=== PATIENT | male | born 1940 | race Caucasian/White ===

== ENCOUNTER 2022-01-17 00:29 | Inpatient (IN) | payer OTHER, SELFPAY ==
[2022-01-17] VITALS (14 sets, daily range): BP systolic 123–210; BP diastolic 70–94; PULSE 49–60; RESP 15–20; TEMP 36.1–36.9; O2SAT 92–100
[2022-01-17] MEDS: Normal Saline Flush 10 ML SYR IVP ×2 (00:05→08:09)
--- NOTE | 2022-01-17 00:15 | DI.CT_ITS ---
Exam(s) CT ABDOMEN PELVIS WO EXAM: CT ABDOMEN PELVIS WO CLINICAL HISTORY: abdominal pain, ? obstruction. TECHNIQUE: Imaging Protocol: Axial computed tomography images with coronal and sagittal reformatted images were created and reviewed. COMPARISON: No exams were available for comparison FINDINGS: ABDOMEN: Lung Bases: Coronary artery calcifications and or vascular stents are present. Cardiomegaly is prese nt. There is a small hiatal hernia. Liver: Normal density. There is a 5 mm hypodense lesion in the left lobe of the liver. It is too sma ll for further characterization but likely reflects a small cyst. No suspicious hepatic lesions are seen on this noncontrast examination. Gallbladder and biliary tract: Cholelithiasis is present. There is no biliary ductal dilatation. Pancreas: Normal density, no abnormal calcifications or inflammatory process. Spleen: Normal. Kidneys: Normal size, contour and axis.No radiodense stones or obstructive uropathy. No masses seen. Adrenal glands: No mass is seen. Lymph nodes: Within normal limits. Abdominal Aorta: There is a 3 cm infrarenal abdominal aortic aneurysm. Atherosclerosis is present. PELVIS: Bladder:Symmetric distention, no gross wall thickening. Bowel: There is a moderate amount of stool throughout the colon. A normal appendix is present. Ther e is dilatation of the proximal small bowel the transition appears to lie in the left abdomen (series 3, image 289). The distal small bowel is of normal caliber. Peritoneal cavity: No ascites, collection or mesenteric inflammatory response. No free air. Reproductive organs: Within normal limits. Bones: Within normal limits. Soft Tissues: There is a small midline fat and fluid containing abdominal wall hernia several cm abov e the umbilicus. There is a moderate size fat containing right inguinal hernia. IMPRESSION: 1. Findings of a small-bowel obstruction with a transition seen in the mid abdomen on the left. 2. Cholelithiasis. Please correlate for any suggestive of acute cholecystitis in follow-up appropria tely. 3. 3 cm infrarenal abdominal aortic aneurysm. RADIATION DOSE DELIVERED: 718.05mGy.cm Total DLP DATA REPOSITORY: All CT scans at this facility are submitted to the National Radiology Data Registry (NRDR) Dose Index Registry (DIR) with the [employer] (ACR). RADIATION OPTIMIZATION: All CT scans at this facility use at least one of these dose optimization te chniques: automated exposure control; mA and/or kV adjustment per patient size (includes targeted exa ms where dose is matched to clinical indication); or iterative reconstruction.
[2022-01-17 00:32] LABS: Source Nasal/Nares
[2022-01-17 00:33] LABS: Abs Immature Grans 0.01 10^3/uL (0.0-0.06); Absolute Basophil Count 0.05 10^3/uL (0.0-0.2); Absolute Eosinophil Count 0.16 10^3/uL (0.0-0.7); Absolute Monocyte Count 0.79 10^3/uL (0.1-0.8); Absolute Neutrophil Count 4.58 10^3/uL (1.2-6.7); Basophils % 0.7; Eosinophils % 2.4; HCT 44.2 % (40.0-50.0); HGB 14.4 g/dL (13.5-17.5); Immature Grans % 0.1; Lymphocytes % 17.7; MCH 30.9 pg (27.0-33.0); MCHC 32.6 % (32.0-36.0); MCV 95 fL (80-95); MPV 9.4 fL (8.0-11.0); Monocytes % 11.6; Neutrophils % 67.5; Platelet Count 183 10^3/uL (130-400); RBC 4.66 10^6/uL (4.36-5.78); RDW 14.7 % (11.8-14.1); RDW-SD 52.1 fL; WBC 6.79 10^3/uL (4.4-10.8)
--- NOTE | 2022-01-17 00:40 | W.ED.GENAD ---
Discharge Plan Disposition Patient Disposition: [facility] INPATIENT Condition: Stable Discharge Details Clinical Impression: SBO (small bowel obstruction) ED Provider: Rajesh Carr Home Meds and New Rx's Prescriptions: No Action amiodarone 200 mg Tablet 200 mg PO DAILY multivitamin [Multi-Daily] Tablet 1 tab PO QAM nitroglycerin 0.3 mg Tablet, Sublingual 0.3 mg SUBLINGUAL Q5-15M PRN Rx Instructions: do not exceed 3 doses per episode cyanocobalamin (vitamin B-12) [Vitamin B-12] 1,000 mcg Tablet 1,000 mcg PO DAILY ferrous sulfate 325 mg (65 mg iron) Tablet 325 mg PO DAILY Rx Instructions: even numbered days only epinephrine [Epi E-Z Pen] 0.3 mg/0.3 mL Auto-Injector 0.3 mg IM PRN PRN rosuvastatin [Crestor] 20 mg Tablet 20 mg PO DAILY Eliquis 5 mg Tablet 5 mg PO BID Medical Decision Making 81 yo male with hx of CAD s/p 2 stents, prior mitral valve repair, afib on eliquis, who comes in with abdominal pain. He is in the area visiting from [facility]. He states he is concerned for a bowel obstruction as he had one 11 years ago despite never having any surgeries and at that time had a surgery with no bowel resections per patient. He had a recurrent obstruction a year ago treated conservatively with NG tube per patient. He started to have pain tonight around 6pm and is intermittent but feels it is gradually worsening so came here for an evaluation. He denies n/v and had a small bowel movement this morning. HE denies fevers, chest pain, dyspnea. His intial systolic BP wasover 200 but on my exam it is 160/82. He is in no distress and is caox4 speaking clearly. He localizes the pain to the mid to epigastric area and is tender and states he feels like his abdomen is swollen. no guarding or rebound. Given his history concern for possible sbo, will obtain labs including cbc, cmp, lipase and ct abdomen/pelvis to further evaluate. Will obtain noncontrast CT initially due to national IV contrast shortage. He has reproducible abdominal tenderness and no chest pain or dyspnea so do not feel acs workup indicated. labs unremarkable,small dose of fentanyl given at his request with good relief of pain. Pending vrad interpretation vrad report confirms sbo with transition point in the mid small bowel. They also note stone near gallbladder neck but has no leukocytosis or elevated lfts so doubt cholecystitis. Will consult with general surgery about admission spoke with Dr. Michael who accepts for admission and will proceed with NG tube placement which pt consents to Differential Diagnosis Differential Diagnosis: sbo, pancreatitis, cholecystitis Imaging Data Radiologic Study: Attestation: I personally reviewed and interpreted this imaging study as follows: Imaging: CT Scan Radiologist's impression: IMPRESSION: 1. Small bowel obstruction. Mid small bowel transition point. 2. Stone noted near the gallbladder neck. Cholecystitis questioned. Lab Data Lab results reviewed: Yes I reviewed the patient's lab results. HPI General Mode of arrival: ambulatory. Date/Time Provider Initiated Documentation: 01/17/22 00:40. Limitations to Documentation: no limitations. Information obtained by: patient. History of Present Illness 81 year old M presents to the emergency department with the chief complaint of abdominal pain, described as moderate, with intensity rated at 5. Quality is described as stabbing and aching, and is localized to the abdomen. Patient reports no radiation. Patient started experiencing this hour(s) (6) and it has been intermittent. No relieving factors improve symptom(s), No exacerbating factors reported . Patient notes no other symptoms.. Patient did receive the following treatments prior to arrival, none Related Data Home Medications Medication Instructions Recorded Confirmed amiodarone 200 mg tablet 200 mg PO DAILY 01/17/22 01/17/22 apixaban 5 mg tablet (Eliquis) 5 mg PO BID 01/17/22 01/17/22 cyanocobalamin (vitamin B-12) 1,000 mcg PO DAILY 01/17/22 01/17/22 1,000 mcg tablet (Vitamin B-12) epinephrine 0.3 mg/0.3 mL 0.3 mg IM PRN PRN 01/17/22 01/17/22 injection, auto-injector ferrous sulfate 325 mg (65 mg 325 mg PO DAILY 01/17/22 01/17/22 iron) tablet multivitamin 1 tab PO QAM 01/17/22 01/17/22 nitroglycerin 0.3 mg sublingual 0.3 mg sublingual Q5-15M PRN 01/17/22 01/17/22 tablet rosuvastatin 20 mg tablet (Crestor) 20 mg PO DAILY 01/17/22 01/17/22 Allergies Allergy/AdvReac Type Severity Reaction Status Date / Time nut - unspecified Allergy Severe Anaphylaxis Unverified 01/17/22 00:26 General Stated Complaint: Abd Prob YORDY: 3 Review of Systems All systems reviewed & are unremarkable except as noted in HPI and below Constitutional Constitutional: Denies chills, Denies fever(s) and Denies weakness Cardiovascular Cardiovascular: Denies chest pain and Denies dyspnea Respiratory Respiratory: Denies cough and Denies dyspnea Gastrointestinal Gastrointestinal: Denies nausea and Denies vomiting Genitourinary Genitourinary: Denies dysuria Musculoskeletal Musculoskeletal: Denies joint swelling Integumentary/Breasts Skin/Breast: Denies rash Neurologic Neurologic: Denies weakness 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 Exam Const General: no acute distress Orientation: alert HENMT Head: normal to inspection Ears: external ears normal General nose exam: external nose normal Mouth: moist mucous membranes Eyes General: appearance normal, both eyes and all related structures Neck Neck: normal visual inspection Resp Effort & Inspection: normal respiratory effort and able to speak in complete sentences Cardio Rate: regular rate GI Palpation: soft and tender Skin General skin exam: no rashes or lesions noted Neuro General: patient alert and patient oriented x3 Extrem General: normal to inspection Psych Mental Status: mental status grossly normal Course Vital Signs Vital signs: Vital Signs Temperature 36.7 C 01/17/22 00:16 Pulse 57 L 01/17/22 00:16 Respiratory Rate 20 01/17/22 00:16 Blood Pressure 210/94 H 01/17/22 00:16 Pulse Oximetry 98 01/17/22 00:16 Temperature 36.7 C 01/17/22 00:16 Temperature Source Skin 01/17/22 00:16 Pulse 57 L 01/17/22 00:16 Respiratory Rate 20 01/17/22 00:16 Respiratory Effort Non-Labored 01/17/22 00:33 Blood Pressure 210/94 H 01/17/22 00:16 Pulse Oximetry 98 01/17/22 00:16 Pain Level 6 01/17/22 00:16 Lab/Test Results Lab/Test Results: Laboratory Tests Range/Units 01/17/22 01/17/22 01/17/22 00:26 00:26 00:26 WBC (4.4-10.8) 10^3/uL 6.79 RBC (4.36-5.78) 10^6/uL 4.66 Hgb (13.5-17.5) g/dL 14.4 Hct (40.0-50.0) % 44.2 MCV (80-95) fL 95 MCH (27.0-33.0) pg 30.9 MCHC (32.0-36.0) % 32.6 RDW (11.8-14.1) % 14.7 H Plt Count (130-400) 10^3/uL 183 MPV (8.0-11.0) fL 9.4 Immature Gran % 0.1 Neutrophils % 67.5 Lymphocytes % 17.7 Monocytes % 11.6 Eosinophils % 2.4 Basophils % 0.7 Nucleated RBC % (0.0-0.3) % 0.0 Absolute Neutrophils (1.2-6.7) 10^3/uL 4.58 Absolute Lymphocytes (1.2-3.4) 10^3/uL 1.20 Absolute Monocytes (0.1-0.8) 10^3/uL 0.79 Absolute Eosinophils (0.0-0.7) 10^3/uL 0.16 Absolute Basophils (0.0-0.2) 10^3/uL 0.05 VBG Lactate (0.6-1.4) mmol/L 1.0 COVID-19 Source Nasal/Nares PAWSS Have you Been Recently Intoxicated or Drunk Within the Last 30 days?: No Have you Ever Experienced Previous Episodes of Alcohol Withdrawal?: No Have you ever Experienced Withdrawal Seizures?: No Have you ever Experienced Delirium Tremens(DT)s?: No Have you ever undergone Alcohol Rehabilitation Treatment (i.e, inpt ot outpatient treatment programs)?: No Have you ever Experienced Blackouts?: No Have you ever Combined Alcohol with other Downers within the last 90 days?: No Have you ever Combined Alcohol with any other Substance of Abuse during the last 90 days?: No Positive Blood Alcohol level on Presentation? [PCS.BAL]: No Evidence of Increased Autonomic Activity (i.e. HR>120, tremor, sweating, agitation, nausea)?: No Result: 0
[2022-01-17 00:47] LABS: INR 1.1 (0.9-1.1); PTT Activated 26.7 sec (21.0-27.5); Prothrombin Time 10.8 sec (9.3-11.0)
[2022-01-17 00:51] LABS: Bilirubin Negative (Negative); Blood Negative (Negative); Clarity Clear (Clear); Glucose Negative (Negative); Ketones Negative (Negative); Leukocyte Esterase Negative (Negative); Nitrite Negative (Negative); Specific Gravity 1.015 (1.005-1.025); Urobilinogen 0.2 EU/dL (Up TO 0.2)
[2022-01-17 00:52] LABS: ALT 25 U/L (16-63); AST 18 U/L (15-37); Albumin 3.9 g/dL (3.4-5.0); Alkaline Phosphatase 73 U/L (46-116); Anion Gap 5.6 mmol/L (3-11); BUN 17 mg/dL (7-18); Bilirubin, Total 0.4 mg/dL (0.2-1.0); CO2 30.4 mmol/L (21.0-32.0); CREATININE 1.3 mg/dL (0.70-1.30); Calcium 9.3 mg/dL (8.5-10.1); Chloride 103 mmol/L (98-107); Estimated GFR 52.72 (mL/min/1.73m2); Glucose 97 mg/dL (74-106); Lipase 115 U/L (73-393); Sodium 139 mmol/L (136-145); Total Protein 7.1 g/dL (6.4-8.2)
[2022-01-17 00:57] LABS: Bilirubin, Direct 0.1 mg/dL (0.0-0.2); Magnesium 2.3 mg/dL (1.8-2.4)
[2022-01-17 01:19] LABS: COVID-19 PCR Negative (Negative)
[2022-01-17] MEDS: fentaNYL 100 MCG/2 ML VIAL 50 MCG IVP (01:29)
[2022-01-17] MEDS: HYDROmorphone 2 MG/ML VIAL 0.5 MG IVP (02:52)
--- NOTE | 2022-01-17 02:54 | DI.VRAD_ITS ---
PROCEDURE INFORMATION: Exam: CT Abdomen And Pelvis Without Contrast Exam date and time: 01/17/2022 12:51 AM Age: 81 years old Clinical indication: Generalized; Prior surgery; Surgery date: 6+ months; Surgery type: Repair from prior bowel obstruction, heart stent/ valve; Patient HX: Abdominal pain, ? obstruction TECHNIQUE: Imaging protocol: Computed tomography of the abdomen and pelvis without contrast. Radiation optimization: All CT scans at this facility use at least one of these dose optimization techniques: automated exposure control; mA and/or kV adjustment per patient size (includes targeted exams where dose is matched to clinical indication); or iterative reconstruction. COMPARISON: No relevant prior studies available. FINDINGS: Lungs: Lung bases are clear. Diaphragm: Mild hiatal hernia. Liver: Unremarkable noncontrast liver. Gallbladder and bile ducts: Calcified stone noted near the gallbladder neck. Mild fat stranding noted around the gallbladder. No biliary ductal dilatation. Pancreas: Normal. No ductal dilation. Spleen: Normal. No splenomegaly. Adrenal glands: Normal. No mass. Kidneys and ureters: No hydronephrosis. Nondilated ureters. No stones. Stomach and bowel: Moderately distended stomach, filled with fluid and air. Unremarkable duodenum. Loops of small bowel are moderately dilated, to 3.7 cm. Fecalization of small bowel contents noted near a mid abdominal transition point. Distal small bowel is collapsed. Terminal ileum is unremarkable. Negative for inflammatory changes around the colon. Scattered diverticula are noted. Stool burden is mild. Appendix: No evidence of appendicitis. Intraperitoneal space: No free fluid. No free air. No abscess. Vasculature: Moderate vascular calcifications. No aneurysm. Lymph nodes: Unremarkable. No enlarged lymph nodes. Urinary bladder: Unremarkable as visualized. Reproductive: Unremarkable as visualized. Bones/joints: No compression fracture. Severe multilevel degenerative disc disease and facet arthropathy. Spinal canal stenosis and neural foraminal narrowing noted. Narrowing noted in both hips, left greater than right. Soft tissues: Small abdominal wall hernia noted inferior to the xiphoid process. Hernia neck 1.5 cm. Hernia sac 5.3 cm. Small amount of fluid and moderate fat noted within the hernia. Prominent fat noted in the right inguinal canal. IMPRESSION: 1. Small bowel obstruction. Mid small bowel transition point. 2. Stone noted near the gallbladder neck. Cholecystitis questioned. Dictated and Authenticated by: Rajesh Hercules MD. Ordering:FRANCI Mena MD
[2022-01-17] MEDS: Lidocaine 2% Viscous 15 ML CUP (03:10)
[2022-01-17] MEDS: Normal Saline 1,000 ML 100 ML IV ×3 (03:32→21:22)
[2022-01-17] MEDS: Ondansetron 4 MG/2 ML VIAL IVP (04:51)
[2022-01-17] MEDS: HYDROmorphone 2 MG/ML SYR 0.5 MG IVP (08:08)
--- NOTE | 2022-01-17 11:57 | PDOC.CMIN ---
- If Service Date Differs Date of service: 01/17/22 Time of Service: 11:57 Care Management Initial Assess REASON FOR HOSPITALIZATION:: small bowel obstruction PAST MEDICAL HISTORY/PAST SURGICAL HISTORY:: Medical History: Bowel obstruction, melonoma in situ, squamous cell skin cancer. Surgical History: hx of heart artery stent, hx of mitral valve repair, status post right knee replacement. PREVIOUS FUNCTIONAL STATUS/SOCIAL/FAMILY SUPPORTS:: Sekou lives in [place], [place] with his , José Luis. 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 They have three adult children, and six grandchildren. They lived in [place] in the 70's and 80's, and were in the area visiting friends and sightseeing. Sekou is independent with ADL's at baseline. CURRENT FUNCTIONAL STATUS:: Sekou was sitting up in bed visiting with his , José Luis, when CM met with him. He was pleasant and engaged in conversation. He stated that he has had a SBO before, once 11 years ago, and another about a year ago, so he is familiar with the course of treatment. He stated that they will plan to return to [place] once he is medically cleared, and will not require services upon discharge. He was later walking in the halls, as MD encourages ambulation. He stated that overall he feels good, and feels that he caught this SBO early. CM will continue to follow. ADVANCE DIRECTIVES:: Not on file at [facility]. Has patient been provided with info about the portal/API?: Yes Did the patient sign up for the portal?: No CODE STATUS:: Full Code INSURANCE COVERAGE / FINANCIAL ISSUES:: [facility] CURRENT HOME/COMMUNITY SERVICES/EQUIPMENT:: No current services or equipment. PRIMARY CARE PHYSICIAN:: Herber Saba- not local. POTENTIAL DISCHARGE NEEDS:: Follow up appointments. PATIENT/FAMILY EDUCATION NEEDS:: Review discharge instructions and limitations, discussion of self care needs including ask me three. ANTICIPATED BARRIERS TO DISCHARGE:: None TRANSPORTATION:: Via private vehicle by his . PLAN:: Anticipate Sekou will return home once medically cleared. His will drive him home via private vehicle. He will follow up with his PCP and discharge plan of care. CM will continue to follow.
--- NOTE | 2022-01-17 12:36 | W.PM.HP.N ---
Date of service: 01/17/22 Time of Service: 12:36 Assessment and Plan Assessment and plan (1) SBO (small bowel obstruction): Status: Acute Assessment and plan: Patient was admitted with small bowel obstruction for IV fluids, bowel rest, NG tube placement and pain control. NG tube 330 cc's out at 0830 NPO Continue IV fluids Pain control, with tylenol and hydromorphone Will order suppository to help stimulate BM Strongly encouraged ambulation and sitting up in the chair as tolerated. Patient appears stable, no signs of peritonitis. History of Present Illness Narrative: 81-year-old male with a history of coronary artery disease status post 2 stents, prior mitral valve repair, A. sharon on [facility] presented to the ER with complaints of abdominal pain. He states that he is visiting the area from [place]. While he was out to dinner he started experiencing abdominal pain which progressively worsened over the evening. He came into the ER for further evaluation for he has had previous experiences of small bowel obstructions which he felt were similar presentations. 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 Patient states last year he also had a small bowel obstruction which resolved within 5 days. He states his last bowel movement was yesterday morning however this was small in size. Patient states that his pain this morning is improved since receiving Dilaudid and NG tube placement. He denies any fevers, chills or night sweats. 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 Meds Allergies and Home Medications Allergies Allergy/AdvReac Type Severity Reaction Status Date / Time nut - unspecified Allergy Severe Anaphylaxis Unverified 01/17/22 00:26 Home Medications Medication Instructions Recorded Confirmed Type amiodarone 200 mg tablet 200 mg PO DAILY 01/17/22 01/17/22 History apixaban 5 mg tablet (Eliquis) 5 mg PO BID 01/17/22 01/17/22 History cyanocobalamin (vitamin B-12) 1,000 mcg PO DAILY 01/17/22 01/17/22 History 1,000 mcg tablet (Vitamin B-12) epinephrine 0.3 mg/0.3 mL 0.3 mg IM PRN PRN 01/17/22 01/17/22 History injection, auto-injector ferrous sulfate 325 mg (65 mg 325 mg PO DAILY 01/17/22 01/17/22 History iron) tablet multivitamin 1 tab PO QAM 01/17/22 01/17/22 History nitroglycerin 0.3 mg sublingual 0.3 mg sublingual Q5-15M PRN 01/17/22 01/17/22 History tablet rosuvastatin 20 mg tablet (Crestor) 20 mg PO DAILY 01/17/22 01/17/22 History Exam Const General: cooperative, healthy appearing and comfortable Orientation: alert and oriented x3 Resp Effort & Inspection: normal respiratory effort, no audible wheezes and no cough GI Inspection: normal to inspection Palpation: soft, no guarding and tender Results Labs Result diagrams: 01/17/22 00:26 01/17/22 00:26 Labs: Laboratory Results - last 24 hr 01/17/22 01/17/22 01/17/22 00:26 00:26 00:26 WBC RBC Hgb Hct MCV MCH MCHC RDW Plt Count MPV Immature Gran % Neutrophils % Lymphocytes % Monocytes % Eosinophils % Basophils % Nucleated RBC % Absolute Neutrophils Absolute Lymphocytes Absolute Monocytes Absolute Eosinophils Absolute Basophils PT INR APTT VBG Lactate Sodium 139 Potassium 4.0 Chloride 103 Carbon Dioxide 30.4 Anion Gap 5.6 BUN 17 Creatinine 1.3 Estimated GFR/1.73 m2 52.72 Glucose 97 Calcium 9.3 Magnesium 2.3 Total Bilirubin Cancelled 0.4 Conjugated Bilirubin 0.1 AST 18 ALT 25 Alkaline Phosphatase 73 Total Protein 7.1 Albumin 3.9 Lipase 115 Urine Color Urine Clarity Urine pH Ur Specific [place] Urine Protein Urine Ketones Urine Blood Urine Nitrite Urine Bilirubin Urine Urobilinogen Ur Leukocyte Esterase Urine Glucose COVID-19 Source Nasal/Nares SARS-CoV-2 (PCR) Negative 01/17/22 01/17/22 01/17/22 00:26 00:26 00:26 WBC 6.79 RBC 4.66 Hgb 14.4 Hct 44.2 MCV 95 MCH 30.9 MCHC 32.6 RDW 14.7 H Plt Count 183 MPV 9.4 Immature Gran % 0.1 Neutrophils % 67.5 Lymphocytes % 17.7 Monocytes % 11.6 Eosinophils % 2.4 Basophils % 0.7 Nucleated RBC % 0.0 Absolute Neutrophils 4.58 Absolute Lymphocytes 1.20 Absolute Monocytes 0.79 Absolute Eosinophils 0.16 Absolute Basophils 0.05 PT 10.8 INR 1.1 APTT 26.7 VBG Lactate 1.0 Sodium Potassium Chloride Carbon Dioxide Anion Gap BUN Creatinine Estimated GFR/1.73 m2 Glucose Calcium Magnesium Total Bilirubin Conjugated Bilirubin AST ALT Alkaline Phosphatase Total Protein Albumin Lipase Urine Color Urine Clarity Urine pH Ur Specific [place] Urine Protein Urine Ketones Urine Blood Urine Nitrite Urine Bilirubin Urine Urobilinogen Ur Leukocyte Esterase Urine Glucose COVID-19 Source SARS-CoV-2 (PCR) 01/17/22 00:46 WBC RBC Hgb Hct MCV MCH MCHC RDW Plt Count MPV Immature Gran % Neutrophils % Lymphocytes % Monocytes % Eosinophils % Basophils % Nucleated RBC % Absolute Neutrophils Absolute Lymphocytes Absolute Monocytes Absolute Eosinophils Absolute Basophils PT INR APTT VBG Lactate Sodium Potassium Chloride Carbon Dioxide Anion Gap BUN Creatinine Estimated GFR/1.73 m2 Glucose Calcium Magnesium Total Bilirubin Conjugated Bilirubin AST ALT Alkaline Phosphatase Total Protein Albumin Lipase Urine Color Yellow Urine Clarity Clear Urine pH 7.0 Ur Specific [place] 1.015 Urine Protein Negative Urine Ketones Negative Urine Blood Negative Urine Nitrite Negative Urine Bilirubin Negative Urine Urobilinogen 0.2 Ur Leukocyte Esterase Negative Urine Glucose Negative COVID-19 Source SARS-CoV-2 (PCR) Last Vital Signs Temp 36.3 C L 01/17/22 11:17 Pulse 52 L 01/17/22 11:17 Resp 16 01/17/22 11:17 BP 123/70 01/17/22 11:17 Pulse Ox 95 01/17/22 11:17 PAWSS Have you Been Recently Intoxicated or Drunk Within the Last 30 days?: No Have you Ever Experienced Previous Episodes of Alcohol Withdrawal?: No Have you ever Experienced Withdrawal Seizures?: No Have you ever Experienced Delirium Tremens(DT)s?: No Have you ever undergone Alcohol Rehabilitation Treatment (i.e, inpt ot outpatient treatment programs)?: No Have you ever Experienced Blackouts?: No Have you ever Combined Alcohol with other Downers within the last 90 days?: No Have you ever Combined Alcohol with any other Substance of Abuse during the last 90 days?: No Positive Blood Alcohol level on Presentation? [PCS.BAL]: No Evidence of Increased Autonomic Activity (i.e. HR>120, tremor, sweating, agitation, nausea)?: No Result: 0
[2022-01-17] MEDS: Bisacodyl 10 MG SUPP PR (13:46)
[2022-01-18] MEDS: ACETAMINOPHEN 1,000 MG/100 ML BTL 400 MG IVPB (01:08)
[2022-01-18 03:18] VITALS: BP 131/69; PULSE 57; RESP 17; TEMP 36.3; O2SAT 93
[2022-01-18 06:38] LABS: BUN 14 mg/dL (7-18); CREATININE 1.1 mg/dL (0.70-1.30); Calcium 8.2 mg/dL (8.5-10.1); Chloride 106 mmol/L (98-107); Glucose 85 mg/dL (74-106); Magnesium 2.1 mg/dL (1.8-2.4); Potassium 3.7 mmol/L (3.5-5.1); Sodium 141 mmol/L (136-145)
[2022-01-18 08:00] VITALS: BP 148/82; PULSE 54; RESP 14; TEMP 36.2; O2SAT 94
[2022-01-18] MEDS: Normal Saline 1,000 ML 100 ML IV ×2 (08:39→18:08)
--- NOTE | 2022-01-18 09:02 | PGE_ITS ---
Date of Service Date of service: 01/18/22 Time of Service: 09:02 Assessment and Plan Assessment and plan (1) SBO (small bowel obstruction): Status: Acute Assessment and plan: Patient appears stable, no signs of peritonitis. NG tube output ~330 already today, brown fluid Continue NPO Continue IV fluids Pain is well controlled, with tylenol and hydromorphone Strongly encouraged ambulation and sitting up in the chair as tolerated. Continue with bowel rest, NG tube decompression and pain control Pt does have BS this evening. He is not having any pain. When he was having pain- it was over the superior portion of his incision. Minimal from NGT. We will try clamping tube and clears. pt has been up walking we d/w the etiology of adhesions. He had previously laparotomy for what sounds like [place]'s bands. continue supportive care Subjective Subjective Interval history since last seen: Patient reports that his pain has improved. However he is not passing any flatus or bowel movements. Patient states that he was up ambulating earlier this morning and has been trying to ambulate the day. He denies any nausea or vomiting at this time. He is tolerating the NG tube well. Exam Const General: cooperative, healthy appearing and comfortable Orientation: alert and oriented x3 Resp Effort & Inspection: normal respiratory effort, no audible wheezes and no cough GI Inspection: distended Palpation: soft, no guarding and tender Auscultation: absent bowel sounds Objective Last Vital Signs Temp 36.3 C L 01/18/22 03:18 Pulse 57 L 01/18/22 03:18 Resp 17 01/18/22 03:18 BP 131/69 01/18/22 03:18 Pulse Ox 93 01/18/22 03:18 Laboratory Results - last 24 hr 01/18/22 05:48 Sodium 141 Potassium 3.7 Chloride 106 Carbon Dioxide 27.0 Anion Gap 8.0 BUN 14 Creatinine 1.1 Estimated GFR/1.73 m2 >= 60.00 Glucose 85 Calcium 8.2 L Magnesium 2.1 PAWSS Have you Been Recently Intoxicated or Drunk Within the Last 30 days?: No Have you Ever Experienced Previous Episodes of Alcohol Withdrawal?: No Have you ever Experienced Withdrawal Seizures?: No Have you ever Experienced Delirium Tremens(DT)s?: No Have you ever undergone Alcohol Rehabilitation Treatment (i.e, inpt ot outpatient treatment programs)?: No Have you ever Experienced Blackouts?: No Have you ever Combined Alcohol with other Downers within the last 90 days?: No Have you ever Combined Alcohol with any other Substance of Abuse during the last 90 days?: No Positive Blood Alcohol level on Presentation? [PCS.BAL]: No Evidence of Increased Autonomic Activity (i.e. HR>120, tremor, sweating, agitation, nausea)?: No Result: 0
[2022-01-18] MEDS: Amiodarone 200 MG TAB NG (09:31)
[2022-01-18 11:32] VITALS: BP 157/83; PULSE 55; RESP 18; TEMP 36.5; O2SAT 94
--- NOTE | 2022-01-18 12:27 | CMPROGNOTE_ITS ---
- If Service Date Differs Date of service: 01/18/22 Time of Service: 12:27 Care Management Progress Note S/O: Sekou was sitting up in bed when CM met with him. He stated that he is feeling ok today, and is not reporting pain. He stated that he slept well from about 8pm until 2am, and then he got up and walked around, as he is being encouraged to ambulate. He stated that he had a headache earlier today, but it resolved with IV tylenol. He is currently NPO. Sekou stated that he feels hopeful that he will be able to avoid surgery, but time will tell. CM will continue to follow. A: Sekou is an 81 year old male admitted to [facility] on 01/17/22 with a SBO. P: Anticipate Sekou will return home once medically cleared. His will drive him home via private vehicle. He will follow up with his PCP and discharge plan of care. CM will continue to follow.
--- NOTE | 2022-01-18 14:09 | CHAPLAIN ---
Sekou was resting in bed when I visited. He was very pleasant and easily engaged in a conversation. His was with him. Sekou said that being in pain had really drained him, but he has been feeling better for about 24 hours now. He is from outside of [place] and was visiting the area when he came to the ED. 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 His worked at the [employer]. He comes back to this area to visit now.
[2022-01-18 15:13] VITALS: BP 150/85; PULSE 56; RESP 18; TEMP 37; O2SAT 95
[2022-01-18 19:50] VITALS: BP 150/73; PULSE 58; RESP 16; TEMP 37.2; O2SAT 95
[2022-01-18 23:38] VITALS: BP 154/81; PULSE 54; RESP 16; TEMP 37.4; O2SAT 95
[2022-01-19] VITALS (9 sets, daily range): BP systolic 113–180; BP diastolic 64–91; PULSE 50–61; RESP 14–17; TEMP 35.9–37; O2SAT 93–95
[2022-01-19] MEDS: Normal Saline 1,000 ML 100 ML IV (04:49)
[2022-01-19] MEDS: Amiodarone 200 MG TAB PO (09:51)
--- NOTE | 2022-01-19 12:16 | CMPROGNOTE_ITS ---
- If Service Date Differs Date of service: 01/19/22 Time of Service: 12:16 Care Management Progress Note S/O: Sekou was lying in bed when CM met with him. He reported that per MD, he would likely have his NG tube removed today, as it has been clamped overnight, and his diet was advanced to clear liquids, which he is tolerating well. He is anticipating that he will return home this weekend, if he continues to improve. He does not anticipate requiring any services upon discharge. CM will continue to follow. A: Sekou is an 81 year old male admitted to [facility] on 01/17/22 with a SBO. P: Anticipate Sekou will return home once medically cleared. His will drive him home via private vehicle. He will follow up with his PCP and discharge plan of care. CM will continue to follow.
[2022-01-19] MEDS: POTASSIUM CHLORIDE/D5-0.45NACL 1,000 ML 100 MEQ IV ×2 (13:19→23:07)
--- NOTE | 2022-01-19 14:09 | NUR.NOTE ---
Nursing Note: Per MD order. The NG was restarted on low intermittent. Patient is NPO again. IVF changed to D5 1/2 NS 20 K at 100. All this explained to the patient and his spouse who verbalize agreement with the POC
--- NOTE | 2022-01-19 16:51 | W.PM.PROGNOT ---
Date of Service Date of service: 01/19/22 Time of Service: 11:54 Assessment and Plan Assessment and plan (1) SBO (small bowel obstruction): Status: Acute Assessment and plan: -Slowly improving, had aspiration event todah -Continue NG tube and bowel rest -Will reassess in AM -KUB for the AM Subjective Subjective Patient reports: no new complaints, feels better, flatus and afebrile; denies bowel movement, nausea or vomiting Exam Const General: cooperative, healthy appearing, comfortable and no acute distress Nutritional Appearance: average body habitus Resp Effort & Inspection: normal respiratory effort, no audible wheezes and no cough GI Inspection: normal to inspection and non-distended Palpation: soft, not firm, no guarding and nontender Neuro General: patient alert, patient awake and patient oriented x3 Objective Last Vital Signs Temp 98.2 F 01/19/22 15:24 Pulse 50 L 01/19/22 15:24 Resp 17 01/19/22 15:24 BP 143/73 H 01/19/22 15:24 Pulse Ox 94 01/19/22 15:24 PAWSS Have you Been Recently Intoxicated or Drunk Within the Last 30 days?: No Have you Ever Experienced Previous Episodes of Alcohol Withdrawal?: No Have you ever Experienced Withdrawal Seizures?: No Have you ever Experienced Delirium Tremens(DT)s?: No Have you ever undergone Alcohol Rehabilitation Treatment (i.e, inpt ot outpatient treatment programs)?: No Have you ever Experienced Blackouts?: No Have you ever Combined Alcohol with other Downers within the last 90 days?: No Have you ever Combined Alcohol with any other Substance of Abuse during the last 90 days?: No Positive Blood Alcohol level on Presentation? [PCS.BAL]: No Evidence of Increased Autonomic Activity (i.e. HR>120, tremor, sweating, agitation, nausea)?: No Result: 0
[2022-01-19] MEDS: diphenhydrAMINE 50 MG/ML VIAL 12.5 MG IVP (20:22)
[2022-01-19] MEDS: LORazepam 2 MG/ML VIAL 0.5 MG IVP (23:08)
[2022-01-20 03:20] VITALS: BP 133/71; PULSE 55; RESP 16; TEMP 37; O2SAT 93
[2022-01-20 06:19] LABS: Abs Immature Grans 0.01 10^3/uL (0.0-0.06); Absolute Basophil Count 0.04 10^3/uL (0.0-0.2); Absolute Eosinophil Count 0.24 10^3/uL (0.0-0.7); Absolute Lymphocyte Count 0.82 10^3/uL (1.2-3.4); Absolute Monocyte Count 0.63 10^3/uL (0.1-0.8); Absolute Neutrophil Count 3.28 10^3/uL (1.2-6.7); Basophils % 0.8; Eosinophils % 4.8; HCT 40.2 % (40.0-50.0); Immature Grans % 0.2; Lymphocytes % 16.3; MCH 30.5 pg (27.0-33.0); MCHC 32.3 % (32.0-36.0); MCV 94 fL (80-95); MPV 9.4 fL (8.0-11.0); Monocytes % 12.5; Neutrophils % 65.4; Platelet Count 157 10^3/uL (130-400); RBC 4.26 10^6/uL (4.36-5.78); RDW 14.7 % (11.8-14.1); RDW-SD 51.5 fL; WBC 5.02 10^3/uL (4.4-10.8)
[2022-01-20 06:55] LABS: ALT 21 U/L (16-63); AST 17 U/L (15-37); Albumin 2.8 g/dL (3.4-5.0); Alkaline Phosphatase 60 U/L (46-116); Anion Gap 5.2 mmol/L (3-11); BUN 8 mg/dL (7-18); Bilirubin, Total 0.6 mg/dL (0.2-1.0); CO2 29.8 mmol/L (21.0-32.0); Calcium 8.3 mg/dL (8.5-10.1); Chloride 107 mmol/L (98-107); Glucose 108 mg/dL (74-106); Magnesium 1.9 mg/dL (1.8-2.4); PHOSPHORUS 2.8 mg/dL (2.6-4.7); Potassium 3.7 mmol/L (3.5-5.1); Sodium 142 mmol/L (136-145); TSH (W/Ref FT4) 4.16 uIU/mL (0.36-3.74); Total Protein 5.7 g/dL (6.4-8.2)
[2022-01-20] MEDS: Amiodarone 200 MG TAB PO (07:45)
[2022-01-20 07:53] VITALS: BP 148/72; PULSE 50; RESP 18; TEMP 35.2; O2SAT 92
--- NOTE | 2022-01-20 08:00 | DI.RAD_ITS ---
Exam(s) XR ABDOMEN FLAT UPRIGHT EXAM: XR ABDOMEN FLAT UPRIGHT CLINICAL HISTORY: SBO. TECHNIQUE: 2D digital imaging was performed. COMPARISON: CT CT ABDOMEN PELVIS WO from 01/17/2022 FINDINGS: 3 views There is an NG tube in the stomach and the stomach is decompressed. Small right-sided pleural effusi on evident. NG tube is in the distal stomach and the stomach is decompressed. Sternotomy wires and prosthetic mitral valve noted. There is still some mildly dilated small bowel loops in this patient has a small bowel obstruction as seen on CT scan of the abdomen performed 01/17/2022. IMPRESSION: NG tube in the stomach and the stomach is decompressed. Some persistent air-filled mildly dilated sm all bowel loops are noted. There is no free air. Small right pleural effusion incidentally noted. Sternotomy wires and prosthetic mitral valve evident DATA REPOSITORY: RADIATION DOSE DELIVERED:
--- NOTE | 2022-01-20 09:39 | W.PM.PROGNOT ---
Date of Service Date of service: 01/20/22 Time of Service: 09:39 Assessment and Plan Assessment and plan (1) SBO (small bowel obstruction): Status: Acute Assessment and plan: -Slowly improving, minimal NG tube output -DC NG tube and start clear liquid diet -KUB improved -Encourage ambulation Subjective Subjective Patient reports: no new complaints, feels better and flatus Interval history since last seen: Was up walking for 20 minutes this morning Exam Const General: cooperative, healthy appearing, comfortable and no acute distress Nutritional Appearance: average body habitus Resp Effort & Inspection: normal respiratory effort, no audible wheezes and no cough GI Inspection: normal to inspection and non-distended Palpation: soft, not firm, no guarding and nontender Neuro General: patient alert, patient awake and patient oriented x3 Objective Last Vital Signs Temp 95.4 F L 01/20/22 07:53 Pulse 50 L 01/20/22 07:53 Resp 18 01/20/22 07:53 BP 148/72 H 01/20/22 07:53 Pulse Ox 92 01/20/22 07:53 Laboratory Results - last 24 hr 01/20/22 01/20/22 05:35 05:35 WBC 5.02 RBC 4.26 L Hgb 13.0 L Hct 40.2 MCV 94 MCH 30.5 MCHC 32.3 RDW 14.7 H Plt Count 157 MPV 9.4 Immature Gran % 0.2 Neutrophils % 65.4 Lymphocytes % 16.3 Monocytes % 12.5 Eosinophils % 4.8 Basophils % 0.8 Nucleated RBC % 0.0 Absolute Neutrophils 3.28 Absolute Lymphocytes 0.82 L Absolute Monocytes 0.63 Absolute Eosinophils 0.24 Absolute Basophils 0.04 Sodium 142 Potassium 3.7 Chloride 107 Carbon Dioxide 29.8 Anion Gap 5.2 BUN 8 Creatinine 1.0 Estimated GFR/1.73 m2 >= 60.00 Glucose 108 H Calcium 8.3 L Phosphorus 2.8 Magnesium 1.9 Total Bilirubin 0.6 AST 17 ALT 21 Alkaline Phosphatase 60 Total Protein 5.7 L Albumin 2.8 L TSH 4.16 H Free T4 1.20 PAWSS Have you Been Recently Intoxicated or Drunk Within the Last 30 days?: No Have you Ever Experienced Previous Episodes of Alcohol Withdrawal?: No Have you ever Experienced Withdrawal Seizures?: No Have you ever Experienced Delirium Tremens(DT)s?: No Have you ever undergone Alcohol Rehabilitation Treatment (i.e, inpt ot outpatient treatment programs)?: No Have you ever Experienced Blackouts?: No Have you ever Combined Alcohol with other Downers within the last 90 days?: No Have you ever Combined Alcohol with any other Substance of Abuse during the last 90 days?: No Positive Blood Alcohol level on Presentation? [PCS.BAL]: No Evidence of Increased Autonomic Activity (i.e. HR>120, tremor, sweating, agitation, nausea)?: No Result: 0
[2022-01-20] MEDS: POTASSIUM CHLORIDE/D5-0.45NACL 1,000 ML 100 MEQ IV (10:01)
--- NOTE | 2022-01-20 10:02 | DI.VRAD_ITS ---
PROCEDURE INFORMATION: Exam: XR Abdomen Exam date and time: 01/20/2022 8:27 AM Age: 81 years old Clinical indication: Condition or disease; Other: Sbo TECHNIQUE: Imaging protocol: Radiologic exam of the abdomen. Views: 2 Views. Upright and supine views. COMPARISON: CT ABDOMEN PELVIS WO 17/01/2022 00:51 FINDINGS: Tubes, catheters and devices: Nasogastric tube extends into the stomach. Gastrointestinal tract: The bowel gas pattern appears slightly disorganized but no significant dilatation or air-fluid levels are present. Air is present within both small bowel and colon. There is no soft tissue mass or significant calcification. Intraperitoneal space: Normal. No free air. Bones/joints: Advanced degenerative changes are present throughout the lumbar spine. IMPRESSION: Bowel gas pattern is more suggestive of ileus than obstruction. Dictated and Authenticated by: Omer Perry MD. Ordering:TONJA Miller MD
[2022-01-20 11:28] VITALS: BP 149/74; PULSE 50; RESP 18; TEMP 36.1; O2SAT 95
[2022-01-20 15:58] VITALS: BP 160/76; PULSE 58; RESP 18; O2SAT 98
--- NOTE | 2022-01-20 18:31 | NUR.NOTE ---
Nursing Note: Per Dr. Mas. Dc fluids, advance diet to surgical soft. Patient encouraged to continue to drink po fluids
[2022-01-20 19:31] VITALS: BP 157/79; PULSE 56; RESP 18; TEMP 36.1; O2SAT 98
[2022-01-20 23:00] VITALS: BP 155/80; PULSE 53; RESP 14; TEMP 35.9; O2SAT 94
[2022-01-20] MEDS: Normal Saline Flush 10 ML SYR IVP (23:10)
[2022-01-20] MEDS: LORazepam 2 MG/ML VIAL 0.5 MG IVP (23:12)
[2022-01-21 05:54] VITALS: BP 125/72; PULSE 51; RESP 17; TEMP 36.7; O2SAT 95
[2022-01-21 08:32] VITALS: BP 155/83; PULSE 62; RESP 18; TEMP 37; O2SAT 95
--- NOTE | 2022-01-21 09:00 | W.PM.DS.N ---
Date of service: 01/21/22 Time of Service: 09:00 DS: Diagnosis Discharge Diagnosis (1) SBO (small bowel obstruction): Status: Acute Asessment and Plan: -Resolved -Had BM overnight, tolerating PO diet without any abdominal pain Discharge Plan Disposition Patient Disposition: HOME Condition: Stable Discharge Details Reason For Visit: Small Bowel Obstruction Admit Date/Time: 01/17/22 03:23 Admit Provider: Opal Michael Attending Provider: Opal Michael [facility] Course: Patient was admitted to the hospital and treated conservatively with NG tube, IVF and bowel rest for a bowel obstruction. He recovered uneventfully, once NG tube was removed he was started on a liquid diet and advanced to regular soft diet. He had a bowel movement and has been passing flatus. Tolerating PO diet. He is cleared for discharge home. Home Meds and New Rx's Prescriptions: Continued amiodarone 200 mg Tablet 200 mg PO DAILY multivitamin Tablet 1 tab PO QAM nitroglycerin 0.3 mg Tablet, Sublingual 0.3 mg SUBLINGUAL Q5-15M PRN Rx Instructions: do not exceed 3 doses per episode cyanocobalamin (vitamin B-12) [Vitamin B-12] 1,000 mcg Tablet 1,000 mcg PO DAILY ferrous sulfate 325 mg (65 mg iron) Tablet 325 mg PO DAILY Rx Instructions: even numbered days only epinephrine 0.3 mg/0.3 mL Auto-Injector 0.3 mg IM PRN PRN rosuvastatin [Crestor] 20 mg Tablet 20 mg PO DAILY Eliquis 5 mg Tablet 5 mg PO BID Discharge Instructions Instructions: Bowel Obstruction (DC) Additional Instructions: Follow up with local surgeon or PCP in 1-2 weeks. Referrals: Juani Greer PA [[facility]] - Activity:: Activity as Tolerated Equipment/Supplies:: No Equipment Needed Diet:: As Tolerated Discharge Orders Discharge Orders: Discharge Order (Routine); Ordered 01/21/22 Ordered By: Angela Mas DS: Summary Time Spent with Patient providing and/or coordinating discharge services: Less than 30 minutes Status at Discharge Functional status at discharge: independent ambulation Overall status at discharge: patient is progressing back to baseline Mental Status: mental status grossly normal Speech and Movement: speech and movement normal Mood: congruent mood Affect: normal affect Exam Const General: cooperative, healthy appearing, comfortable and no acute distress Nutritional Appearance: average body habitus Resp Effort & Inspection: normal respiratory effort, no audible wheezes and no cough GI Inspection: normal to inspection and non-distended Palpation: soft, not firm, no guarding and nontender Neuro General: patient alert, patient awake and patient oriented x3 Psych Mental Status: mental status grossly normal Speech and Movement: speech and movement normal Mood: congruent mood Affect: normal affect DS: Data Vitals/I&O Vitals and I&O: Vital Signs Temperature 98.6 F 01/21/22 08:32 Temperature Source Tympanic 01/21/22 08:32 Pulse 62 01/21/22 08:32 Pulse Rhythm Regular 01/21/22 06:16 Pulse 51 L 01/17/22 01:20 Respiratory Rate 18 01/21/22 08:32 Respiratory Effort Non-Labored 01/21/22 06:16 Respiratory Depth Normal 01/21/22 06:16 Respiratory Pattern Normal 01/21/22 06:16 Blood Pressure 155/83 H 01/21/22 08:32 Blood Pressure Mean 104 01/17/22 01:16 Pulse Oximetry 95 01/21/22 08:32 Oxygen Delivery Method Room Air 01/21/22 08:32 Oxygen Flow Rate 0 01/21/22 08:32 Pain Level 0 01/21/22 08:32 Comment 01/20/22 03:20 Intake & Output 01/20/22 01/20/22 01/21/22 11:59 23:59 11:59 Intake Total 1000 / 2378.333 1378.333 / 2378.333 500 / 500 Output Total 1125 / 3025 1900 / 3025 1025 / 1025 Balance -125 / -646.667 -521.667 / -646.667 -525 / -525 Weight 159 lb 13.362 oz Intake: IV 1000 / 1848.333 848.333 / 1848.333 Oral 530 / 530 500 / 500 Output: Urine 1125 / 3025 1900 / 3025 1025 / 1025 Other: Urine Color Yellow Yellow Straw Urine Appearance Clear Clear Clear Urine Odor None None Normal Stool Size Small Small Large Stool Characteristics Soft Soft Formed Formed Formed Voiding Methods Urinal Urinal Urinal 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
[2022-01-21] MEDS: Amiodarone 200 MG TAB PO (09:54)
--- NOTE | 2022-01-21 16:21 | PDOC.CMDIS ---
- If Service Date Differs Date of service: 01/21/22 Time of Service: 11:00 LACE Index Scoring Tool - Questions: Length of Stay (in days): 4 - 6 Acuity (Admit via E.D.?): Yes E.D. Visits: 1 - Answers: Total Score: 8 Risk of Readmission: Low Risk Care Management Discharge Reason for Hospitalization: small bowel obstruction Discharge Plan: Sekou is discharged home with no new services. He will follow up with his PCP, surgeon and plan of care as prescribed. He is transported home via private vehicle by his . Patient/Family Education Needs: Review discharge instructions and discuss Ask Me Three.
== END 2022-01-21 10:44 | disposition home or self-care (01) | DRG 390 ==
LOC: ER 03:54 → MS 04:03
PROVIDERS: Surgery; Admitting Provider Surgery; Emergency Provider Emergency Medicine; PCP Internal Medicine; Visit Provider Surgery
DX: K56.609 Unspecified intestinal obstruction, unspecified as to partial versus complete obstruction (principal); I25.10 Atherosclerotic heart disease of native coronary artery without angina pectoris; Z95.5 Presence of coronary angioplasty implant and graft; Z95.2 Presence of prosthetic heart valve; I48.91 Unspecified atrial fibrillation; Z79.01 Long term (current) use of anticoagulants; Z96.651 Presence of right artificial knee joint
CPT/HCPCS: 36415; 80048; 80053; 83690; 87635; 96374; 96375; 99285; 74019; 74176; 81003; 82247; 82248; 83605; 83735; 84100; 84439; 84443; 85025; 85610; 85730; J0131; J1170; J1200; J2060; J2405; J3010